=== PATIENT | male | born 1985 | race Caucasian/White ===

== ENCOUNTER 2020-03-26 20:26 | Emergency (ER) | payer MEDICAID ==
[~2020-03-26] VITALS: Ht 167.6 cm; Wt 90.7 kg
[2020-03-26 20:26] VITALS: BP 143/96
--- NOTE | 2020-03-26 20:28 | NUR ---
Ronalda to bed 11 via BLS run
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
[2020-03-26] MEDS ORDERED: ACETAMINOPHEN EXTRA STRENGTH 500 MG TAB PO ONE (20:50)
[2020-03-26 21:14] VITALS: BP 136/78
--- NOTE | 2020-03-26 21:15 | NUR ---
pt taken to CT via w/c
--- NOTE | 2020-03-26 23:52 | NUR ---
Patient discharged with v/s stable. Written and verbal after care instructions given and explained. Patient alert, oriented and verbalized understanding of instructions. Ambulatory with steady gait. All questions addressed prior to discharge. ID band removed. Patient advised to follow up with PMD. Rx of keflx, norco, ibuprofen given. Patient educated on indication of medication including possible reaction and side effects. Opportunity to ask questions provided and answered.
== END 2020-03-26 23:53 | disposition home or self-care (01) ==
LOC: MED 20:26
DX: S02.31XA Fracture of orbital floor, right side, initial encounter for closed fracture (principal); S02.831A Fracture of medial orbital wall, right side, initial encounter for closed fracture; F17.210 Nicotine dependence, cigarettes, uncomplicated; Y04.2XXA Assault by strike against or bumped into by another person, initial encounter; Y93.89 Activity, other specified; Y92.89 Other specified places as the place of occurrence of the external cause; Y99.8 Other external cause status
CPT/HCPCS: 70480; 99284